=== PATIENT | female | born 1980 | race Caucasian/White ===

== ENCOUNTER 2017-03-28 09:08 | Emergency (ER) | payer OTHER ==
[~2017-03-28] VITALS: Ht 160 cm; Wt 100.0 kg
[~2017-03-28 09:08] MED LIST: AMOXICILLIN500 MG PO; AMOXICILLIN875 MG OR; ARIPIPRAZOLE2 MG PO; ARIPIPRAZOLE5 MG PO; BACTRIM DS1 TAB PO; BUSPAR10 MG PO; CEPHALEXIN500 MG PO; CIPROFLOXACN500 MG PO; CRANBERRY1 TA1 PO; DOVONEX0.0051 TOP; ELIMITE5 % EX; ENLYTE PO; ESCITALOPRAM OX10 MG PO; FLAGYL500 MG OR; HYDROXYZ HCL25 MG OR; IRON CHEWS PO; LAMICTAL150 M1 OR; LORTAB5 PO; MEDDOSEPAK PO; MULTI VIT PO; MUPIROCIN2 % EX; NO HOME MEDS; PYRIDIUM200 MG PO; ROBITUSSIN AC10 ML PO; TEGRETOL100 MG OR; TRAMADOL HCL50 MG PO; TRIAMCINOLON0.025 % EX; TRILEPTAL150 MG PO; ULTRAM50 M1 PO; ZPAK PO; [UNRECOGNIZED DRUG - REMARK]
[2017-03-28] MEDS ORDERED: MOTRIN800 MG PO (09:27)
[2017-03-28] MEDS ORDERED: FLEXERIL PO (09:27)
[2017-03-28 09:40] VITALS: BP 133/68
== END 2017-03-28 09:40 | disposition home or self-care (01) | DRG 563 ==
LOC: ED 09:08
DX: S39.012A Strain of muscle, fascia and tendon of lower back, initial encounter (principal); F32.9 Major depressive disorder, single episode, unspecified; F41.9 Anxiety disorder, unspecified; F43.10 Post-traumatic stress disorder, unspecified; F17.210 Nicotine dependence, cigarettes, uncomplicated; W10.9XXA Fall (on) (from) unspecified stairs and steps, initial encounter; Y92.009 Unspecified place in unspecified non-institutional (private) residence as the place of occurrence of the external cause

== ENCOUNTER 2017-04-11 08:50 | Emergency (ER) | payer OTHER ==
[~2017-04-11] VITALS: Ht 160 cm; Wt 100.0 kg
[~2017-04-11 08:50] MED LIST changes: +FLEXERIL PO; +MOTRIN800 MG PO
[2017-04-11 10:42] VITALS: BP 135/59
[2017-04-11] MEDS ORDERED: MOTRIN800 MG PO (10:46)
[2017-04-11] MEDS ORDERED: TRAMADOL HYDROC50 MG PO (10:46)
== END 2017-04-11 10:58 | disposition home or self-care (01) | DRG 563 ==
LOC: ED 08:50
DX: S29.012A Strain of muscle and tendon of back wall of thorax, initial encounter (principal); F32.9 Major depressive disorder, single episode, unspecified; F41.9 Anxiety disorder, unspecified; F43.10 Post-traumatic stress disorder, unspecified; F17.210 Nicotine dependence, cigarettes, uncomplicated; W01.0XXA Fall on same level from slipping, tripping and stumbling without subsequent striking against object, initial encounter; Y92.008 Other place in unspecified non-institutional (private) residence as the place of occurrence of the external cause

== ENCOUNTER 2017-10-01 13:49 | Emergency (ER) | payer OTHER ==
[~2017-10-01] VITALS: Ht 160 cm; Wt 90.0 kg
[~2017-10-01 13:49] MED LIST changes: +TRAMADOL HYDROC50 MG PO
[2017-10-01] MEDS ORDERED: DOXYCYC MONO100 M2 PO (14:39)
[2017-10-01 14:41] VITALS: BP 135/7
== END 2017-10-01 14:57 | disposition home or self-care (01) | DRG 605 ==
LOC: ED 13:49
PROC: 0HQGXZZ Repair Left Hand Skin, External Approach (ICD-10-PCS; principal; 2017-10-01)
DX: S61.012A Laceration without foreign body of left thumb without damage to nail, initial encounter (principal); W26.0XXA Contact with knife, initial encounter; Y93.89 Activity, other specified; Y92.89 Other specified places as the place of occurrence of the external cause

== ENCOUNTER 2017-10-09 16:03 | Emergency (ER) | payer OTHER ==
[~2017-10-09] VITALS: Ht 160 cm; Wt 93.2 kg
[~2017-10-09 16:03] MED LIST changes: +DOXYCYC MONO100 M2 PO
[2017-10-09 16:08] VITALS: BP 123/74
== END 2017-10-09 16:13 | disposition left against medical advice (07) | DRG 951 ==
LOC: ED 16:03 → LWOBS 16:13
DX: Z91.19 Patient's noncompliance with other medical treatment and regimen (principal)

== ENCOUNTER 2017-11-28 17:12 | Emergency (ER) | payer OTHER ==
[~2017-11-28] VITALS: Ht 160 cm; Wt 90.0 kg
[2017-11-28 18:25] LABS: HEMATOCRIT 39.2 % (37.0-47.0); IMMATURE GRANULOCYTES 0.3 % (0.0-1.0); MEAN CELL VOLUME 89.9 fL CALC (80.0-100.0); MEAN CORPUSCULAR HGB 29.8 pG CALC (26.0-32.0); MEAN CORPUSCULAR HGB CONC 33.2 g/L CALC (32.0-36.0); NEUT# 8.4 thou/uL (2.00-7.15); RED BLOOD COUNT 4.36 mill/uL (4.20-5.60); RED CELL DISTRI WIDTH 13.2 % (11.5-15.5)
[2017-11-28 18:33] LABS: ALBUMIN 4.5 g/dL (3.2-5.0); ALKALINE PHOSPHATASE 69 u/l (38-126); ANION GAP 22 (6-22 (CALC)); BILIRUBIN, TOTAL 0.6 mg/dL (0.0-1.4); BUN 4 mg/dL (7-17); BUN/CREATININE RATIO 5 (12-20 (CALC)); CARBON DIOXIDE 18 mmol/l (22-30); CHLORIDE 102 mmol/l (95-108); CREATININE 0.8 mg/dL (0.5-1.0); GFR > 60 ML/MIN (>=60 (CALC)); GFR FOR AFR.AMER. > 60 ML/MIN (>=60 (CALC)); POTASSIUM 3.5 mmol/l (3.5-5.1); SGOT/AST 31 u/l (14-36); SGPT/ALT 53 u/l (9-52); SODIUM 139 mmol/l (137-146); TOTAL PROTEIN 7.9 g/dL (6.3-8.2)
[2017-11-28 18:34] LABS: ETHYL ALCOHOL 35 mg/dl (0-30)
[2017-11-28 19:32] LABS: URINE BILIRUBIN - DIPSTICK NEGATIVE (NEGATIVE); URINE BLOOD DIPSTICK LARGE (NEGATIVE); URINE GLUCOSE - DIPSTICK NEGATIVE (NEGATIVE); URINE KETONE NEGATIVE (NEGATIVE); URINE LEUK ESTERASE NEGATIVE (NEGATIVE); URINE NITRITE - DIPSTICK NEGATIVE (Negative); URINE PROTEIN - DIPSTICK NEGATIVE (NEG-TRACE); URINE SPECIFIC GRAVITY <=1.005; URINE UROBILINOGEN - DIPSTICK 0.2 E.U./dL (0.2)
[2017-11-28 19:35] LABS: URINE CLARITY CLEAR; URINE COLOR DK. YELLOW
[2017-11-28 19:38] LABS: COCAINE NEGATIVE (NEGATIVE); METHADONE NEGATIVE (NEGATIVE); TETRAHYDROCANNABIONOL NEGATIVE (NEGATIVE); TRICYLIC ANTIDEPRESSANTS NEGATIVE (NEGATIVE)
[2017-11-28 19:39] LABS: BARBITURATES NEGATIVE (NEGATIVE); OXCYCODONE NEGATIVE (NEGATIVE)
[2017-11-28 19:42] LABS: URINE WBC 0-2 WBC/hpf (0-5)
[2017-11-28 22:02] VITALS: BP 155/87
== END 2017-11-28 22:03 | disposition designated cancer center or children's hospital (05) | DRG 884 ==
LOC: ED 17:12
PROVIDERS: Emergency Medicine
DX: R45.1 Restlessness and agitation (principal); R45.851 Suicidal ideations; F15.90 Other stimulant use, unspecified, uncomplicated; Z72.89 Other problems related to lifestyle; R00.0 Tachycardia, unspecified
CPT/HCPCS: J2060

== ENCOUNTER 2018-01-14 10:51 | Emergency (ER) | payer OTHER ==
[~2018-01-14] VITALS: Ht 160 cm; Wt 70.5 kg
[2018-01-14 12:13] LABS: HEMATOCRIT 34.5 % (37.0-47.0); HEMOGLOBIN 11.4 g/dl (12.0-16.0); IMMATURE GRANULOCYTES 0.4 % (0.0-1.0); MEAN CELL VOLUME 90.1 fL CALC (80.0-100.0); MEAN CORPUSCULAR HGB 29.8 pG CALC (26.0-32.0); NEUT# 5.67 thou/uL (2.00-7.15); RED BLOOD COUNT 3.83 mill/uL (4.20-5.60); RED CELL DISTRI WIDTH 13.9 % (11.5-15.5)
[2018-01-14 12:21] LABS: ALBUMIN 3.9 g/dL (3.2-5.0); ALKALINE PHOSPHATASE 81 u/l (38-126); BILIRUBIN, TOTAL 0.6 mg/dL (0.0-1.4); BUN 11 mg/dL (7-17); BUN/CREATININE RATIO 17 (12-20 (CALC)); CARBON DIOXIDE 22 mmol/l (22-30); CHLORIDE 101 mmol/l (95-108); CREATININE 0.7 mg/dL (0.5-1.0); GFR > 60 ML/MIN (>=60 (CALC)); GFR FOR AFR.AMER. > 60 ML/MIN (>=60 (CALC)); POTASSIUM 3.8 mmol/l (3.5-5.1); SGOT/AST 50 u/l (14-36); SGPT/ALT 58 u/l (9-52); TOTAL PROTEIN 7.4 g/dL (6.3-8.2)
[2018-01-14 12:22] LABS: ANION GAP 13 (6-22 (CALC)); ETHYL ALCOHOL 0 mg/dl (0-30); SODIUM 132 mmol/l (137-146)
[2018-01-14 13:03] LABS: URINE BILIRUBIN - DIPSTICK NEGATIVE (NEGATIVE); URINE BLOOD DIPSTICK LARGE (NEGATIVE); URINE COLOR YELLOW; URINE GLUCOSE - DIPSTICK NEGATIVE (NEGATIVE); URINE KETONE NEGATIVE (NEGATIVE); URINE LEUK ESTERASE NEGATIVE (NEGATIVE); URINE NITRITE - DIPSTICK NEGATIVE (Negative); URINE PROTEIN - DIPSTICK NEGATIVE (NEG-TRACE); URINE UROBILINOGEN - DIPSTICK 0.2 E.U./dL (0.2)
[2018-01-14 13:06] LABS: BARBITURATES NEGATIVE (NEGATIVE); COCAINE NEGATIVE (NEGATIVE); METHADONE NEGATIVE (NEGATIVE); TETRAHYDROCANNABIONOL NEGATIVE (NEGATIVE); TRICYLIC ANTIDEPRESSANTS NEGATIVE (NEGATIVE); URINE CLARITY CLEAR
[2018-01-14 13:07] LABS: OXCYCODONE NEGATIVE (NEGATIVE)
[2018-01-14 13:12] LABS: URINE SQUAMOUS EPITHELIAL CELL FEW EPI/hpf (0-FEW); URINE WBC 0-2 WBC/hpf (0-5)
[2018-01-14 14:02] VITALS: BP 164/89
== END 2018-01-14 14:02 | disposition designated cancer center or children's hospital (05) | DRG 885 ==
LOC: ED 10:51
PROVIDERS: Emergency Medicine
DX: F23 Brief psychotic disorder (principal); F41.9 Anxiety disorder, unspecified; F43.10 Post-traumatic stress disorder, unspecified; F17.290 Nicotine dependence, other tobacco product, uncomplicated; L40.9 Psoriasis, unspecified
CPT/HCPCS: S0166